=== PATIENT | male | born 1935 | race Two or more races ===

== ENCOUNTER 2020-10-23 08:01 | Day surgery (SDC) | payer OTHER ==
[2020-10-22 10:35] VITALS: BMI 23.8
[2020-10-23 10:36] VITALS: PULSE 84
[2020-10-23 10:59] VITALS: BP 130/82; TEMP 97.8
== END 2020-10-23 10:59 | disposition home or self-care (01) ==
LOC: FASU-ENDO 08:01
PROVIDERS: ATTEND Internal Medicine Gastroenterology
PROC: 3E0H8KZ Introduction of Other Diagnostic Substance into Lower GI, Via Natural or Artificial Opening Endoscopic (ICD-10-PCS; 2020-10-23)
PROC: 0DBN8ZX Excision of Sigmoid Colon, Via Natural or Artificial Opening Endoscopic, Diagnostic (ICD-10-PCS; principal; 2020-10-23 09:33)
DX: Z86.010 Personal history of colon polyps (principal); K57.30 Diverticulosis of large intestine without perforation or abscess without bleeding; D12.5 Benign neoplasm of sigmoid colon
CPT/HCPCS: 88305-TC